=== PATIENT | female | born 1985 | race Caucasian/White ===

== ENCOUNTER 2016-10-23 16:57 | Emergency (ER) | payer BC ==
[2016-10-23 17:11] VITALS: RESP 18; TEMP 96.8
[2016-10-23] MEDS ORDERED: LIDOCAINE 2% 20 MG/ML - 20 ML VIAL SUBCUT ONE (17:11)
[2016-10-23] MEDS ORDERED: DIPH,PERTUSS,TET(ADACEL) VAC/PF 0.5 ML (Tdap) IM ONE ×2 (18:08→18:11)
--- NOTE | 2016-10-24 00:22 | PDOC ---
Skin Rash/Insect/Abscess HPI - General Chief Complaint: Laceration / Wound Stated Complaint: flap lac to R 3rd digit Date Seen by Provider: 10/24/16 Time Seen by Provider: 17:10 - History of Present Illness Initial Comments: This is a very nice 31-year-old woman who was trimming some limbs in her yard with a shear and accidentally got her hand in the way and had a flap-like laceration on the palmar side of her hand. Have you received a tetanus shot in the past 10 years?: Yes - Patient Home Medications Home Medications: Home Medications Vit No.128/Iron/FA [ Vitamin] 1 tab PO DAILY tab 07/04/15 - Patient Allergies Allergies/Adverse Reactions: Allergies Allergy/AdvReac Type Severity Reaction Status Date / Time No Known Allergies Allergy Verified 10/23/16 17:05 Past Medical History - heen HEENT History: Denies History Cardiovascular History: Denies History Respiratory History: Denies History Gastrointestinal History: Denies History Genitourinary History: Denies History Endocrine History: Denies History Musculoskeletal History: Denies History Prosthesis or Implant: No Neurological History: Denies History Blood Disorders: Denies History Psychiatric History: Denies History History of Sexually Transmitted Diseases: No Female Reproductive History: Denies History LMP: unsure, currently nursing Obstetrical History: Denies History Additional Obstetrical History: Cancer History: Denies History In Past Year Been Physically Harmed or Verbally Threatened: No History of MDRO: No History of Other Communicable Diseases: No Tobacco Use: Never Smoker Alcohol Use: None Substance Use Type: None Previous Surgical History: No Significant Family History: No pertinent family hx Past Medical History Reviewed: Reviewed - No Changes ROS - Limitations ROS Limitations: No Limitations Constitution: REPORTS: Denies Symptoms Cardiovascular: REPORTS: Denies Cardiac Symptoms Respiratory: REPORTS: Denies Resp Symptoms Skin Rash/Insect/Abscess Exam - General Appearance General Appearance: REPORTS: Alert, Cooperative, No Acute Distress - Skin Skin Symptoms: REPORTS: Warmth - Extremities Additional Extremities Details: Patient has a complex laceration on the distal palmar aspect of her ring finger. This has irregular flaps and designed to it and his total about 3 cm altogether. Procedures - Laceration/Wound Repair Wound Length (cm): 3 Wound's Depth, Shape: Into subcutaneous tissue Distal CMS: Yes Local Anesthesia Used - Indicate Amt Used in Comment: Lidocaine 2%: Yes Wound Explored: Clean Wound Debrided: Moderate Wound Repaired With: Sutures single layer Suture Size/Type: 5:0 Layer Closure?: No Skin Rash/Abscess Progress - Patient's Progress MDM / ED Course: Finger wound was anesthetized scrubbed out and sutured. She had a moderate amount revision and needed to be done with some of the flap tissue that was nonviable. Wound closed up fairly nicely and she will need her stitches out in around a week to 10 days. Patient Care Time - Estimated PCT Patient Care Time (In Minutes): 40 Vital Signs - Recent Vital Signs Vital Signs: Vital Signs (Last 8 hours) Temp Pulse Resp BP Pulse Ox 10/23/16 16:57 96.8 F 57 L 18 113/62 95 - VS Reviewed Vital Signs Reviewed: Yes Discharge Clinical Impression: Laceration Discharge Disposition: Discharged to Home Condition: Stable Patient Instructions Given at Discharge: Laceration (ED) Additional Instructions: Rest your finger for the next couple of days Use ice compression and elevation anti-inflammatories and acetaminophen to help with symptoms from your laceration. Avoid submerging her finger and water i.e. doing dishes for at least a couple of days until it seals over Return for suture removal in 7-10 days Return if you have any concern for cellulitis or infection or any other significant concerns Follow Up With: SANDRA BOOTH [Primary Care Provider] -
== END 2016-10-23 18:19 | disposition home or self-care (01) ==
LOC: ER 16:57
DX: S61.411A Laceration without foreign body of right hand, initial encounter (principal); W45.8XXA Other foreign body or object entering through skin, initial encounter
CPT/HCPCS: 12002; 90471; 99282; J2001